=== PATIENT | male | born 1955 | race Caucasian/White ===

== ENCOUNTER → 2016-12-17 | Outpatient (CLI) | payer OTHER, BC ==
[~2016-12-17] MED LIST: ATORVASTATIN CA40 MG PO; BREO ELLIPTA 11 EACH IH; CARVEDILOL6.25 MG PO; CLONAZEPAM 1 MG1 M1 PO; DEPAKOTE ER500 MG PO; GLUCOPHAGE XR750 MG PO; IMDUR 30 MG TAB30 M1 PO; L-METHYLFOLATE15 MG PO; LAMOTRIGINE150 MG PO; LEVOTHYROXINE 0.1 MG PO; PLAVIX 75 MG TA75 M1 PO; PREDNISONE 20 M20 MG PO; ROBAXIN 750 MG750 M1 PO; SPIRIVA RESPIMAT4 GM IH; WELLBUTRIN XL300 MG PO
== END ==
LOC: MRI 09:04
DX: M75.102 Unspecified rotator cuff tear or rupture of left shoulder, not specified as traumatic (principal); M75.101 Unspecified rotator cuff tear or rupture of right shoulder, not specified as traumatic; M75.02 Adhesive capsulitis of left shoulder; S43.422A Sprain of left rotator cuff capsule, initial encounter; X58.XXXA Exposure to other specified factors, initial encounter; Y93.89 Activity, other specified; Y92.89 Other specified places as the place of occurrence of the external cause; Y99.8 Other external cause status